=== PATIENT | female | born 1990 | race Caucasian/White ===

== ENCOUNTER 2019-03-03 19:36 | Emergency (ER) | payer SELFPAY ==
[~2019-03-03] VITALS: Ht 160 cm; Wt 73.5 kg
[~2019-03-03 19:36] MED LIST: IBUP-1542 PO
[2019-03-03 19:44] VITALS: Ht 160 cm; Wt 73.5 kg
[2019-03-03] MEDS ORDERED: HYDROCODONE/APAP (5/325) TAB PO ONE (20:30)
[2019-03-03 21:38] VITALS: BP 122/67; PULSE 72; RESP 17
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
== END 2019-03-03 21:38 | disposition home or self-care (01) ==
LOC: FTE 19:36
DX: S00.83XA Contusion of other part of head, initial encounter (principal); M25.531 Pain in right wrist; V86.09XA Driver of other special all-terrain or other off-road motor vehicle injured in traffic accident, initial encounter
CPT/HCPCS: 70140; 81025